=== PATIENT | male | born 1995 | race African-American/Black ===

== ENCOUNTER 2023-10-08 16:56 | Emergency (ER) | payer SELFPAY ==
[2023-10-08] MEDS ORDERED: Acetaminophen 325 MG TAB ONE (17:48)
== END 2023-10-08 18:30 | disposition home or self-care (01) ==
LOC: CSHERS 16:56
DX: J06.9 Acute upper respiratory infection, unspecified (principal); F17.210 Nicotine dependence, cigarettes, uncomplicated
CPT/HCPCS: 71046; 93005

== ENCOUNTER 2025-06-11 08:21 | Emergency (ER) | payer SELFPAY ==
[2025-06-11 09:13] LABS: #Basophils 0.03 10x3/uL (0.0-0.2); #Eosinophils Less than 0.03 10x3/uL (0.0-0.5); #Monocytes 0.53 10x3/uL (0.0-1.1); #Neutrophils 7.14 10x3/uL (1.5-8.4); %Basophils 0.3 % (0.0-2.0); %Eosinophils 0.0 % (0.0-6.0); %Lymphocytes 17.1 % (18.0-47.0); %Monocytes 5.7 % (0.0-10.0); %Neutrophils 76.6 % (40.0-75.0); Hematocrit 40.8 % (38.8-50.0); Hemoglobin 13.5 g/dL (13.5-17.5); Mean Corpuscular Hemoglobin 28.3 pg (27.0-33.0); Mean Corpuscular Volume 85.5 fL (81.2-95.1); Platelet Count 348 10x3/uL (150-450); Red Blood Cell (RBC) Count 4.77 10x6/uL (4.32-5.72); White Blood Cell (WBC) Count 9.32 10x3/uL (3.5-10.5)
[2025-06-11 09:14] LABS: Cocaine Metabolite Screen PRELIM POSITIVE (Negative); THC/Cannabinoid Screen PRELIM POSITIVE (Negative); Tricyclic Screen Negative (Negative)
[2025-06-11 09:31] LABS: ALT (SGPT) 30 U/L (Less than 45); AST (SGOT) 38 U/L (11-34); Acetaminophen Less than 10 mcg/mL (Less than 10); Albumin 3.8 g/dL (3.1-4.5); Alkaline Phosphatase 72 U/L (40-110); Anion Gap 17 mmol/L (10-20); BUN (Urea Nitrogen) 13 mg/dL (8.9-20.6); Bilirubin, Total 0.3 mg/dL (0.3-1.2); Calc. Creatinine Clearance 0 mL/min (70-130); Calcium 9.2 mg/dL (7.8-10.44); Carbon Dioxide 19 mmol/L (22-29); Chloride 112 mmol/L (98-107); Globulin 2.6 g/dL (2.4-3.5); Glucose 91 mg/dL (70-105); Potassium 4.3 mmol/L (3.5-5.1); Salicylate Less than 8.0 mg/dL (Less than 8.0); Sodium 144 mmol/L (136-145)
== END 2025-06-11 12:42 | disposition home or self-care (01) ==
LOC: CSHERS 08:21
DX: R45.851 Suicidal ideations (principal); F10.129 Alcohol abuse with intoxication, unspecified; F14.10 Cocaine abuse, uncomplicated; F12.20 Cannabis dependence, uncomplicated; F17.200 Nicotine dependence, unspecified, uncomplicated
CPT/HCPCS: 36415; 80053; 80143; 80179; 80306; 80307; 85025; 93005

== ENCOUNTER 2025-09-01 08:36 | Emergency (ER) | payer OTHER, SELFPAY ==
[2025-09-01] MEDS ORDERED: Acetaminophen 500 MG TAB ONE (10:52)
[2025-09-01] MEDS ORDERED: Ibuprofen 800 MG TAB ONE (10:53)
== END 2025-09-01 10:56 | disposition home or self-care (01) ==
LOC: CSHERS 08:36
DX: M25.562 Pain in left knee (principal); F17.200 Nicotine dependence, unspecified, uncomplicated; W22.8XXA Striking against or struck by other objects, initial encounter
CPT/HCPCS: 99283